=== PATIENT | female | born 1945 | race Caucasian/White ===

== ENCOUNTER 2019-02-08 19:26 | Emergency (ER) | payer MEDICARE, OTHER ==
[~2019-02-08] VITALS: Ht 157.5 cm; Wt 113.4 kg
--- OUTSIDE RECORDS SUMMARY | 2019-02-08 19:29 | XMS REPORT | Summary of Care ---
Author Author KRIS HERNADEZ M.D. Unknown Address [facility] Phone Unavailable Care Team Providers Care Purchasing Coordinator Name Role Phone KRIS HERNADEZ M.D. Unavailable Unavailable SUSAN ECHAVARRIA MD Unavailable Unavailable PASQUALE STODDARD MD [place], BEHZAD Ugalde Unavailable Unavailable KRIS HERNADEZ MD Unavailable Unavailable Unavailable Unavailable Functional Status Name Dates Details Functional status health issues are not documented Status: Name Dates Details Cognitive status health issues are not documented Status: Problems Name Dates Details Cervical pain (723.1, M54.2) Status: Active Strain of shoulder (840.9, S46.919A) Status: Active Shoulder pain (719.41, M25.519) Status: Active Strain, cervical (847.0, S16.1XXA) Status: Active Shoulder pain, left (719.41, M25.512) Status: Active Hip pain, left (719.45, M25.552) Status: Active Contusion of hip, left (924.01, S70.02XA) Status: Active Arm pain, central, right (729.5, M79.601) Status: Active Pain of toe of right foot (729.5, M79.674) Status: Active Abscess, toe, right (681.10, L02.611) Status: Active Contusion of shoulder, right (923.00, S40.011A) Status: Active Right shoulder pain (719.41, M25.511) Status: Active Knee pain (719.46, M25.569) Status: Active Nasal vestibulitis (478.19, J34.89) Status: Active Neuropathic pain (729.2, M79.2) Status: Active Closed displaced fracture of acromial end of left clavicle, initial encounter (810.03, S42.032A) Status: Active Primary osteoarthritis of both knees (715.16, M17.0) Status: Active Knee pain, right (719.46, M25.561) Status: Active Follow up (V67.9, Z09) Status: Active Chronic ethmoidal sinusitis (473.2, J32.2) Status: Active Chronic frontal sinusitis (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 * Refills: 0 Active Namzaric 28-10 MG Oral Capsule Extended Release 24 Hour TAKE 1 CAPSULE DAILY * Refills: 0 Active Nitrofurantoin 100 MG CAPS TAKE 1 CAPSULE EVERY 12 HOURS DAILY. * Refills: 0 Active Pantoprazole Sodium 40 MG Oral Tablet Delayed Release TAKE 1 TABLET ONCE DAILY * Refills: 1 Active 7 Tablet Bottle Pilocarpine HCl 0.5 % SOLN INSTILL 1 DROP INTO AFFECTED EYE(S) 3 TIMES DAILY. * Refills: 0 Active Potassium Chloride 20 MEQ TBCR TAKE 1 TABLET DAILY. * Refills: 0 Active Pramipexole Dihydrochloride 0.25 MG Oral Tablet TAKE 1 TABLET 3 TIMES DAILY. * Quantity: 270 Refills: 1 Active Propranolol HCl CR 80 MG CPCR TAKE 1 CAPSULE TWICE DAILY * Refills: 0 Active Tradjenta 5 MG Oral Tablet TAKE 1 TABLET DAILY. * Refills: 0 Active Venlafaxine HCl ER 150 MG Oral Capsule Extended Release 24 Hour TAKE 1 CAPSULE TWICE DAILY * Refills: 0 Active Myrbetriq 50 MG Oral Tablet Extended Release 24 Hour TAKE 1 TABLET DAILY * Refills: 0 Active QUEtiapine Fumarate 100 MG Oral Tablet TAKE 1 TABLET DAILY. * Refills: 0 Active Tylenol 8 Hour 650 MG Oral Tablet Extended Release * Refills: 0 Active Co Q-10 100 MG Oral Capsule * Refills: 0 Active Cranberry-Vitamin C CAPS * Refills: 0 Active Estroven TABS Take one tablet daily * Refills: 0 Active Fexofenadine HCl TABS TAKE 1 TABLET DAILY. * Refills: 0 Active [place]-3 Fish Oil 1200 MG Oral Capsule TAKE TWO IN THE MORNING AND EVENING. * Refills: 0 Active Glucosamine Chond Complex/MSM TABS 1500mg daily in the evening * Refills: 0 Active Iron TABS 28mg daily * Refills: 0 Active Nattokinase CAPS 2000 units Daily * Refills: 0 Active NexIUM CPDR take twice daily 22.5 mg * Refills: 0 Active Probiotic CAPS * Refills: 0 Active Rolaids CHEW Take 2 daily * Refills: 0 Active Rutin TABS * Refills: 0 Active Theragran-M TABS TAKE 1 TABLET EVERY 12 HOURS. * Refills: 0 Active Mupirocin 2 % External Ointment Dissolve 2 inch strip in 240ml of saline solution. Irrigate half bottle on left and half on right. * Quantity: 1 Refills: 6 KRIS HERNADEZ M.D. * Start : 29-Jun-2017 Active 22 GM Tube Allergies and Adverse Reactions Name Dates Details Flector PTCH (Allergy) Status: Active iodine (Allergy) Status: Active Penicillins (Allergy) Status: Active Sulfur (Allergy) Status: Active Past Medical History Name Dates Details History of benign neoplasm of skin (V13.3, Z87.2) Status: Resolved History of Follow up (V67.9, Z09) Status: Resolved History of Heel spur (726.73, M77.30) Status: Resolved History of hypertension (V12.59, Z86.79) Status: Resolved History of Injury of toe (959.7, S99.929A) Status: Resolved History of Osteoarthrosis, localized (715.30, M19.90) Status: Resolved Procedures Procedure Dates Details History of Hysterectomy Total, With Removal Of Both Tubes And Both Ovaries Completed History of Craniotomy Tumor Removal - Complete Completed History of Gallbladder Surgery Completed History of Sinus Surgery Completed History of Shoulder Arthroscopy Completed Immunization Name Dates Details Immunizations not documented Family History Name Dates Details No pertinent family history (V49.89, Z78.9) Status: Active Social History Name Dates Details - Status: Name Dates Details Never smoker Vital Signs Date Test Result Details No Known Vitals to report Results Date Description Value Details Results not documented Plan of Care Name Dates Details Planned Observations Planned Goals not documented Planned Encounters Appointment; KRIS HERNADEZ M.D. On: 25-Jan-2019 13:00 Interventions Provided Plan* 1. Will need antibiotic sinus rinse for 4 weeks. Fu in 4 weeks. Instructions Name Dates Details Instructions not documented Encounters Appointment; BEHZAD GIORDANO M.D. Encounter Diagnosis: Problem not documented On: 15-May-2017 11:15 Appointment; KRIS HERNADEZ M.D. Encounter Diagnosis: Problem not documented On: 29-Jun-2017 10:30 Appointment; BEHZAD GIORDANO M.D. Encounter Diagnosis: Problem not documented On: 21-Feb-2018 15:45 Appointment; BEHZAD GIORDANO M.D. Encounter Diagnosis: Problem not documented On: 11-Apr-2018 12:30 Appointment; BEHZAD GIORDANO M.D. Encounter Diagnosis: Problem not documented On: 12-Sep-2018 14:15 Appointment; KRIS HERNADEZ M.D. Encounter Diagnosis: Problem not documented On: 24-Dec-2018 13:00
--- OUTSIDE RECORDS SUMMARY | 2019-02-08 19:29 | XMS REPORT ---
Author Author [facility] Address Unknown Phone Unavailable Care Team Providers Care Furnace Mechanic Helper Name Role Phone Unavailable Unavailable Payers Payer Name Policy Type Policy Number Effective Date Expiration Date Problems This patient has no known problems. Allergies, Adverse Reactions, Alerts Allergy Name Allergy Type Status Severity Reaction(s) Onset Date Inactive Date Treating Clinician Comments Iodine and Iodide Containing Produc DA Active 2017-10-02 00:00:00 Penicillins DA Active SV 2017-10-02 00:00:00 Sulfa (Sulfonamide Antibiotics) DA Active SV 2017-10-02 00:00:00 clindamycin DA Active MO 2017-10-02 00:00:00 Iodine and Iodide Containing Produc FA Active 2017-10-02 00:00:00 Medications This patient has no known medications.
[2019-02-08] MEDS ORDERED: SODIUM CHLORIDE 0.9% 500ML 500 ML IV ONE (20:45)
[2019-02-08 21:20] LABS: BASOPHILS # (AUTO) 0.1 (0.0-0.1); BASOPHILS % 0.8 % (0.0-1.0); EOSINOPHILS # (AUTO) 0.4 (0.0-0.4); EOSINOPHILS % 4.5 % (0.0-6.0); HEMATOCRIT 36.2 % (34.2-44.1); HEMOGLOBIN 11.7 g/dL (12.0-16.0); LYMPHOCYTES # (AUTO) 2.9 (1.0-3.2); LYMPHOCYTES % 34.3 % (18.0-39.1); MEAN CORPUSCULAR HEMOGLOBIN 32.5 pg (28-32); MEAN CORPUSCULAR HGB CONC 32.3 g/dL (31-35); MEAN CORPUSCULAR VOLUME 100.6 fL (81-99); MONOCYTES # (AUTO) 0.6 (0.2-0.8); MONOCYTES % 7.1 % (4.4-11.3); NEUTROPHILS # (AUTO) 4.5 (2.1-6.9); NEUTROPHILS % 53.1 % (38.7-80.0); PLATELET COUNT 148 x10e3/uL (140-360); RED CELL DISTRIBUTION WIDTH 13.3 % (11.7-14.4)
[2019-02-08 21:35] LABS: ANION GAP 15.2 mmol/L (8-16); CALCIUM 9.6 mg/dL (8.4-10.2); CREATININE, SERUM 1.49 mg/dL (0.57-1.11); POTASSIUM 4.2 mmol/L (3.5-5.1)
[2019-02-08 23:43] VITALS: BP 113/59
== END 2019-02-08 23:45 | disposition home or self-care (01) ==
LOC: ER 19:26
DX: R19.7 Diarrhea, unspecified (principal); R10.84 Generalized abdominal pain; E66.9 Obesity, unspecified
CPT/HCPCS: 36415; 80048; 83735; 85025; 99285; J7040

== ENCOUNTER 2019-02-28 21:23 | Emergency (ER) | payer MEDICARE, OTHER ==
[~2019-02-28] VITALS: Ht 157.5 cm; Wt 113.4 kg
[2019-02-28] MEDS ORDERED: SODIUM CHLORIDE 0.9% 1000ML 1,000 ML IV ONE (23:15)
[2019-03-01 00:12] LABS: CLARITY,URINE CLOUDY (CLEAR); COLOR,URINE YELLOW (YELLOW); LEUKOCYTE ESTERASE ,URINE 1+ (NEGATIVE); NITRITE,URINE POSITIVE (NEGATIVE)
[2019-03-01 00:13] LABS: BILIRUBIN,URINE NEGATIVE (NEGATIVE); KETONES,URINE NEGATIVE (NEGATIVE); PROTEIN,URINE DIPSTICK NEGATIVE (NEGATIVE); URINE UROBILINOGEN 0.2 mg/dL (0.2 - 1)
[2019-03-01 00:53] LABS: BACTERIA,URINE MANY /HPF; EPITHELIAL CELLS,URINE FEW /LPF; WBC,URINE (MAN) >50 /HPF (0-5)
[2019-03-01 00:54] LABS: BASOPHILS # (AUTO) 0.1 (0.0-0.1); BASOPHILS % 0.7 % (0.0-1.0); EOSINOPHILS # (AUTO) 0.2 (0.0-0.4); HEMATOCRIT 40.6 % (34.2-44.1); HEMOGLOBIN 13.3 g/dL (12.0-16.0); LYMPHOCYTES # (AUTO) 3.4 (1.0-3.2); LYMPHOCYTES % 38.1 % (18.0-39.1); MEAN CORPUSCULAR HGB CONC 32.8 g/dL (31-35); MEAN CORPUSCULAR VOLUME 97.8 fL (81-99); MONOCYTES # (AUTO) 0.5 (0.2-0.8); MONOCYTES % 5.7 % (4.4-11.3); NEUTROPHILS # (AUTO) 4.7 (2.1-6.9); NEUTROPHILS % 53.2 % (38.7-80.0); PLATELET COUNT 140 x10e3/uL (140-360); RED BLOOD COUNT 4.15 x10e6/uL (3.6-5.1); RED CELL DISTRIBUTION WIDTH 12.4 % (11.7-14.4)
[2019-03-01 01:10] LABS: AMYLASE 64 U/L (25-125); LIPASE 30 U/L (8-78)
[2019-03-01 01:14] LABS: ALBUMIN 3.8 g/dL (3.5-5.0); ANION GAP 20.1 mmol/L (8-16); CALCIUM 9.8 mg/dL (8.4-10.2); CREATININE, SERUM 1.16 mg/dL (0.57-1.11); POTASSIUM 5.1 mmol/L (3.5-5.1)
[2019-03-01] MEDS ORDERED: CEFTRIAXONE SOD 1 GM/NS 50 ML 50 ML IV ONE (02:00)
== END 2019-03-01 02:40 | disposition home or self-care (01) ==
LOC: ER 21:23
DX: R19.7 Diarrhea, unspecified (principal); N30.90 Cystitis, unspecified without hematuria; I10 Essential (primary) hypertension; E11.9 Type 2 diabetes mellitus without complications; K21.9 Gastro-esophageal reflux disease without esophagitis
CPT/HCPCS: 36415; 80053; 81001; 82150; 83690; 85025; 99283; J0696; J7030